=== PATIENT | female | born 1965 | race Caucasian/White ===

== ENCOUNTER 2017-04-07 22:08 | Emergency (ER) | payer SELFPAY ==
[2017-04-07 22:42] VITALS: BP 147/84; PULSE 83; RESP 18; TEMP 98.4; O2SAT 96
--- NOTE | 2017-04-07 22:52 | C.PDOC ---
History Of Present Illness 51 year old female presents to ED with complaints of pain to her right foot and ankle after trip and fall down few stairs yesterday. Patient applied ice to the area. Today the area still looks swollen and bruised, and reports it hurts to walk. Denies any other injury, numbness, weakness. Time Seen by Provider: 04/07/17 22:44 Chief Complaint (Nursing): Lower Extremity Problem/Injury History Per: Patient, Family History/Exam Limitations: no limitations, language barrier (speaks little Mexican, Czech) Onset/Duration Of Symptoms: Days, Waxing/Waning Severity: Moderate - Ankle/Foot Description Of Injury: Fell, Twisted Currently Unable To: Bear Weight Alleviating Factor(s): Ice Therapy Past Medical History Reviewed: Historical Data, Nursing Documentation, Vital Signs Vital Signs: Last Vital Signs Temp 98.4 F 04/07/17 22:36 Pulse 83 04/07/17 22:36 Resp 18 04/07/17 22:36 BP 147/84 04/07/17 22:36 Pulse Ox 96 04/07/17 22:56 - Medical History PMH: Hyperthyroidism Surgical History: Cholecystectomy Family History: States: Unknown Family Hx - Social History Hx Alcohol Use: No Hx Substance Use: No - Immunization History Hx Tetanus Toxoid Vaccination: No Hx Influenza Vaccination: No Hx Pneumococcal Vaccination: No Review Of Systems Musculoskeletal: Positive for: Foot Pain (right) Physical Exam - Physical Exam Appears: Non-toxic, No Acute Distress Skin: Warm, Dry Head: Atraumatic, Normacephalic Eye(s): bilateral: Normal Inspection Neck: Normal ROM Chest: Symmetrical Neurological/Psych: Oriented x3, Normal Speech Additional Physical Exam Comments: Right Lower extremity: Swelling to lateral foot and ankle. Tenderness below lateral malleolus and along the lateral foot and 5th metatarsal. Ecchymosis to lateral foot and below lateral malleolus. Pain with dorsiflexion otherwise normal ROM. Normal DP pulse. No calf tenderness. Normal ROM, no swelling or tenderness to knee. All other extremities with normal ROM, no swelling or tenderness ED Course And Treatment O2 Sat by Pulse Oximetry: 96 Medical Decision Making Medical Decision Making: Impression: Right foot/ankle injury Plan: * Right foot and ankle Xray Progress: XRay Foot shows no fracture and calcaneal spurring Xray Ankle shows soft tissue swelling, no acute fracture or dislocation [place]o bandage and Ortho shoe applied by RN Patient advised to rest, ice and take analgesics as needed. Instruct to follow up with orthopedic if the pain persists Disposition Counseled Patient/Family Regarding: Diagnosis, Need For Followup, Rx Given - Disposition Referrals: Matt Ramos III, MD [Staff Provider] - Disposition: HOME/ ROUTINE Disposition Time: 23:43 Condition: GOOD Additional Instructions: Your xray was normal, no fracture. Please apply ice to area 15 minutes three times a day. Take Motrin as needed for pain every 6 hours, with food to not upset stomach. Follow up with orthopedic if pain persists over one week. Prescriptions: Ibuprofen [Motrin] 600 mg PO Q8 #30 tab Instructions: Ankle Sprain (ED) Forms: [employer] (Mexican) - POA Present On Arrival: None - Clinical Impression Clinical Impression: Strain of ankle and foot
--- NOTE | 2017-04-08 10:37 | RAD ---
PROCEDURE: Right Ankle Radiographs. HISTORY: pain s.p trip on steps COMPARISON: Comparison made with concurrent radiographs of the right foot FINDINGS: BONES: No evidence of acute displaced fracture nor dislocation. The osseous structures including the talar dome appear intact. Ankle mortise maintained. Small plantar and posterior calcaneal enthesophytes are present. JOINTS: No significant osteoarthritis. . SOFT TISSUES: Mild soft tissue swelling overlying the lateral malleolus. OTHER FINDINGS: None. IMPRESSION: No evidence acute displaced fracture nor dislocation. Mild soft tissue swelling overlying lateral malleolus
--- NOTE | 2017-04-08 10:44 | RAD ---
PROCEDURE: Right Foot Radiographs. HISTORY: Pain. Tripped on stops COMPARISON: Correlation made with concurrent radiographs of the right ankle FINDINGS: BONES: No evidence of acute displaced fracture nor dislocation. The osseous structures intact. Small posterior and plantar surface calcaneal enthesophytes a present. JOINTS: There is mild hallux valgus deformity with slight overgrowth of the head of the 1st metatarsal and minor DJD 1st MTP joint. Additionally, there is mild degenerative changes of the PIP and DIP joints. Small corticated bony density adjacent to the distal medial aspect middle phalanx 2nd toe which could represent some old posttraumatic mineralization. SOFT TISSUES: Some mild dorsal soft tissue swelling OTHER FINDINGS: None. IMPRESSION: No evidence of acute displaced fracture nor dislocation
== END 2017-04-07 23:45 | disposition home or self-care (01) ==
LOC: C.ER 22:08
DX: S96.911A Strain of unspecified muscle and tendon at ankle and foot level, right foot, initial encounter (principal); W10.9XXA Fall (on) (from) unspecified stairs and steps, initial encounter; Y92.9 Unspecified place or not applicable